=== PATIENT | female | born 1970 | race Caucasian/White ===

== ENCOUNTER 2018-01-14 15:00 | Outpatient (RCR) | payer MEDICAID, SELFPAY | END 2018-01-22 23:59 | LOC: NS 15:00 | PROVIDERS: Family Provider Internal Medicine; PCP Internal Medicine; Visit Provider Nurse Practitioner | DX: E66.9 Obesity, unspecified (principal); R63.5 Abnormal weight gain; Z68.34 Body mass index [BMI] 34.0-34.9, adult; Z71.3 Dietary counseling and surveillance | CPT/HCPCS: 97802 ==

== ENCOUNTER 2018-01-29 08:15 | Outpatient (RCR) | payer MEDICAID, SELFPAY | END 2018-02-22 23:59 | LOC: NS 08:15 | PROVIDERS: Family Provider Internal Medicine; PCP Internal Medicine; Visit Provider Nurse Practitioner | DX: E66.9 Obesity, unspecified (principal); R63.5 Abnormal weight gain; Z68.34 Body mass index [BMI] 34.0-34.9, adult; Z71.3 Dietary counseling and surveillance | CPT/HCPCS: 97803 ==

== ENCOUNTER 2018-02-23 18:29 | Emergency (ER) | payer MEDICAID, SELFPAY ==
[2018-02-23 18:30] VITALS: BP 119/67; PULSE 59; RESP 18; TEMP 36.7; O2SAT 99; BMI 33.6
[2018-02-23 19:26] VITALS: BP 125/74; PULSE 65; RESP 14; O2SAT 99
--- NOTE | 2018-02-23 19:41 | ED.VISSUMM ---
- ER Visit Summary Date of Service: 02/23/18 Chief Complaint: Nasal congestion, sore throat nonproductive cough History of Present Illness: The patient is a 47 F who presents with URI symptoms that started Sunday. She reports nasal congestion, nonproductive cough and sore throat. She denies fever or chills. She denies headache. She denies ear pain. She reports she was diagnosed with pneumonia several months ago. She is a non-smoker. She denies dyspnea or dyspnea on exertion. Denies any pleuritic chest pain. Physical Examination: Vital signs are noted and remarkable for slight elevation blood pressure 25/74. She is not febrile nor she hypoxic. Head is atraumatic normocephalic. Pupils are equal round reactive. Extraocular muscles are intact. TMs are pearly white with landmarks noted. Nares patent with no drainage. Nasal mucosa is boggy. There is dried drainage noted. Posterior pharynx without erythema or exudate. Uvula is midline. There is no dysphonia or dysphasia. Trachea is midline. There is no stridor with auscultation of the neck. Heart is regular without murmur, gallop or rub. S1 and S2 are normal. Lungs are clear to auscultation with good movement of air bilaterally. Test Results: Patient and were told she has an acute upper respiratory infection. Antibiotics not indicated. Furthermore she was informed that since her vital signs are normal based on 2 large studies performed many years ago no one was found to have a pneumonia/infiltrate on chest x-ray if heart rate less than 100, respiratory rate less than 20 and temperature less than 100. Since her vital signs are normal no imaging was obtained. Emergency Department Course and Treatment: See test results Treatment Plan: Symptomatic Disposition: Discharged to home with appropriate home-going instructions Impression: Acute viral upper respiratory infection This note was generated with [employer] dictation software. It may contain incorrect words, spelling, and punctuation that were not noted in review of the chart prior to signing ED Disposition - Plan for ED Patient: Disposition: Home or Assisted Living Chief Complaint: Cold Sx Instructions: ED Upper Resp Infec No Abx Tx Referrals: Bryn Dominguez MD [Primary Care Provider] - 10-14 Days if not better
[2018-02-23 19:46] VITALS: BP 121/70; PULSE 60; RESP 14; O2SAT 98
== END 2018-02-23 19:50 | disposition home or self-care (01) ==
PROVIDERS: Emergency Provider Emergency Medicine; Family Provider Internal Medicine; PCP Internal Medicine
DX: J06.9 Acute upper respiratory infection, unspecified (principal)
CPT/HCPCS: 99282

== ENCOUNTER 2018-03-05 08:39 | Outpatient (RCR) | payer MEDICAID, SELFPAY | END 2018-03-24 23:59 | LOC: NS 08:39 | PROVIDERS: Family Provider Internal Medicine; PCP Internal Medicine; Visit Provider Nurse Practitioner | DX: E66.9 Obesity, unspecified (principal); Z68.34 Body mass index [BMI] 34.0-34.9, adult; Z71.3 Dietary counseling and surveillance ==

== ENCOUNTER 2018-03-25 09:14 | Outpatient (RCR) | payer MEDICAID, SELFPAY | END 2018-03-25 17:30 | disposition home or self-care (01) | LOC: NS 09:14 | PROVIDERS: Family Provider Internal Medicine; PCP Internal Medicine; Visit Provider Nurse Practitioner | DX: E66.9 Obesity, unspecified (principal); Z68.34 Body mass index [BMI] 34.0-34.9, adult; Z71.3 Dietary counseling and surveillance | CPT/HCPCS: 97803 ==

== ENCOUNTER 2019-08-05 16:50 | Emergency (ER) | payer MEDICAID, SELFPAY ==
[2018-10-31 15:49] VITALS: BMI 33.6
[2019-08-05 16:52] VITALS: BP 122/62; PULSE 52; RESP 16; TEMP 37.1; O2SAT 100; BMI 32.5
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
[2019-08-05] MEDS: HYDROcodone Bitartrate/Apap 5/325 Tablet PO (17:25)
[2019-08-05] MEDS: Diphth,Pertuss(Acell),Tet Vac 0.5 ML Vial IM (17:25)
[2019-08-05 17:53] VITALS: PULSE 64
== END 2019-08-05 17:57 | disposition home or self-care (01) ==
PROVIDERS: Emergency Provider Emergency Medicine; PCP Internal Medicine
DX: T23.061A Burn of unspecified degree of back of right hand, initial encounter (principal); T23.021A Burn of unspecified degree of single right finger (nail) except thumb, initial encounter; T21.02XA Burn of unspecified degree of abdominal wall, initial encounter; T31.0 Burns involving less than 10% of body surface; Z23 Encounter for immunization
CPT/HCPCS: 90471; 90715; 99282

== ENCOUNTER 2019-08-10 15:07 | Emergency (ER) | payer MEDICAID, SELFPAY ==
[2019-08-10 15:08] VITALS: BP 128/70; PULSE 58; RESP 17; TEMP 36.6; O2SAT 97; BMI 35.6
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
== END 2019-08-10 16:16 | disposition home or self-care (01) ==
PROVIDERS: Emergency Provider Physician Assistant Medical; PCP Internal Medicine
DX: T23.222A Burn of second degree of single left finger (nail) except thumb, initial encounter (principal); Z48.00 Encounter for change or removal of nonsurgical wound dressing
CPT/HCPCS: 99282

== ENCOUNTER 2020-11-23 19:38 | Emergency (ER) | payer OTHER, MEDICAID, SELFPAY ==
[2020-11-23 19:39] VITALS: BP 105/68; PULSE 62; RESP 16; TEMP 36.3; O2SAT 98; BMI 32.5
--- NOTE | 2020-11-23 19:52 | RAD_ITS ---
STUDY: X-RAY - LEFT HAND, ATTENTION SECOND FINGER REASON FOR EXAM: Female, 50 years old. INJURY TECHNIQUE: 2 view(s) of the finger were obtained. COMPARISON: None. FINDINGS: Normal metacarpal head. Normal metacarpophalangeal joint. Normal proximal phalanx. Normal middle phalanx. Normal distal phalanx. Normal proximal interphalangeal joint. Normal distal interphalangeal joint. RAD/Finger(s) Min 2 Views IMPRESSION: Normal x-ray examination of the finger. Electronically Signed: Jamilah Maria MD at 20:01 EDT Tel , Service support ,
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
[2020-11-23] MEDS: Naproxen 500 MG Tablet PO (21:24)
== END 2020-11-23 21:48 | disposition home or self-care (01) ==
LOC: ED 21:10
PROVIDERS: Emergency Provider Emergency Medicine; PCP Internal Medicine
DX: S67.193A Crushing injury of left middle finger, initial encounter (principal); W23.0XXA Caught, crushed, jammed, or pinched between moving objects, initial encounter; Y93.89 Activity, other specified; Y92.89 Other specified places as the place of occurrence of the external cause; Y99.0 Civilian activity done for income or pay; Z87.891 Personal history of nicotine dependence
CPT/HCPCS: 73140; 99283

== ENCOUNTER 2022-02-14 19:08 | Emergency (ER) | payer OTHER, SELFPAY ==
[2022-02-14 19:09] VITALS: BP 123/72; PULSE 60; RESP 15; TEMP 36.2; O2SAT 98; BMI 35.2
== END 2022-02-14 20:04 | disposition left against medical advice (07) ==
LOC: ED 20:48
PROVIDERS: PCP Internal Medicine
DX: Z53.21 Procedure and treatment not carried out due to patient leaving prior to being seen by health care provider (principal)